=== PATIENT | male | born 1985 | race Hispanic/Latino ===

== ENCOUNTER 2024-08-29 21:06 | Emergency (ER) | payer SELFPAY ==
[~2024-08-29] VITALS: Ht 172.7 cm; Wt 95.3 kg
[2024-08-29 21:46] LABS: BASOPHILS # (AUTO) 0.04 K/uL (0.00-0.20); BASOPHILS % (AUTO) 0.5 % (0.0-5.0); EOSINOPHILS # (AUTO) 0.03 K/uL (0.00-0.70); EOSINOPHILS % (AUTO) 0.3 % (0.0-8.0); HEMATOCRIT 44.7 % (42-54); IMMATURE GRANULOCYTE ABSOLUTE 0.02 K/uL (0-1); LYMPHOCYTES # (AUTO) 1.7 K/uL (1.0-4.8); MEAN CORPUSCULAR HEMOGLOBIN 26.7 pg (27.0-33.0); MEAN CORPUSCULAR HGB CONC 32.7 g/dL (32.0-36.0); MEAN CORPUSCULAR VOLUME 81.7 fL (79-99); MONOCYTES # (AUTO) 0.5 K/uL (0.1-1.0); MONOCYTES % (AUTO) 5.8 % (3.0-13.0); NEUTROPHILS # (AUTO) 6.3 K/uL (1.8-7.7); NEUTROPHILS % (AUTO) 73.2 % (40.0-77.0); PLATELET COUNT (AUTO) 249 K/uL (130-400); RED BLOOD CELL COUNT(AUTO) 5.47 MIL/uL (4.50-6.20); RED CELL DISTRIBUTION WIDTH 14.9 % (11.0-15.5); WHITE BLOOD COUNT (AUTO) 8.7 K/uL (4.8-10.8)
[2024-08-29 21:58] LABS: CARBON DIOXIDE 31 mmol/L (21-32); CHLORIDE 103 mmol/L (101-111); GLOMERULAR FILTR. RATE CALC 98 mL/min (>90); GLUCOSE,RANDOM 97 mg/dL (70-105); POTASSIUM 3.6 mmol/L (3.5-5.1); SODIUM SERUM 142 mmol/L (136-145); UREA NITROGEN, BLOOD 13 mg/dL (7-18)
[2024-08-29 22:06] LABS: CREATINE KINASE, TOTAL 129 U/L (21-232)
[2024-08-29 22:11] LABS: B-TYPE NATRIURETIC PEPTIDE 10 pg/mL (0-100)
[2024-08-29] MEDS: ketOROlac 15MG/ML VIAL (15MG/ML) IM ONE (22:33)
[2024-08-29 22:34] LABS: APPEARANCE,URINE CLEAR (CLEAR); BILIRUBIN,URINE NEGATIVE (NEGATIVE); COLOR,URINE YELLOW (YELLOW); GLUCOSE, URINE (UA) NEGATIVE (NEGATIVE); KETONES,URINE NEGATIVE (NEGATIVE); LEUKOCYTE ESTERASE ,URINE NEGATIVE Leu/uL (NEGATIVE); NITRATE,URINE NEGATIVE (NEGATIVE); OCCULT BLOOD,URINE NEGATIVE (NEGATIVE); PH,URINE 6.5 (5.0-8.0); PROTEIN,URINE NEGATIVE (NEGATIVE); UROBILINOGEN,URINE 0.2 mg/dL (0.2-1.0)
[2024-08-29 22:36] LABS: MUCUS,URINE RARE LPF (None Seen); RBC,URINE 0-1 /HPF (0-1)
[2024-08-29 22:37] LABS: COVID19 (SARS ANTIGEN RAPID) PRESUMPTIVE NEGATIVE (NEGATIVE); INFLUENZA TYPE A Negative For Type A (NEGATIVE); INFLUENZA TYPE B Negative For Type B (NEGATIVE)
[2024-08-29 22:40] LABS: AMPHET/METH SCREEN,URINE NEGATIVE (NEGATIVE); BARBITURATE SCREEN, URINE NEGATIVE (NEGATIVE); BENZODIAZEPINES SCREEN,URINE NEGATIVE (NEGATIVE); CANNABINOID SCREEN,URINE POSITIVE (NEGATIVE); COCAINE SCREEN,URINE NEGATIVE (NEGATIVE); OPIATE SCREEN,URINE NEGATIVE (NEGATIVE); PHENCYCLIDINE SCREEN,URINE NEGATIVE (NEGATIVE)
--- NOTE | 2024-08-29 23:39 | HMCIMG ---
CT HEAD/BRAIN W/O CONTRAST HISTORY: Severe headaches COMPARISON: None TECHNIQUE: Multiple sequential axial images of the head were obtained from the base of the skull through vertex. Patient was not given contrast through intravenous route. FINDINGS: The ventricles and extraventricular CSF spaces are nondilated for patient's age. There is no midline shift, mass effect or herniation. No acute intracranial bleed is seen. Visualized portion of the paranasal sinuses are grossly within normal limits. IMPRESSION: 1. No acute intracranial bleed is seen. CT was performed with one or more following dose reduction techniques: automated exposure control, adjustment of the mA and kv according to patient's size, or use of a iterative reconstruction technique.
[2024-08-30] MEDS: 0.9%NACL 1000ML 1,000 ML IV ONE (00:22)
[2024-08-30 01:00] VITALS: BP 131/88; PULSE 67; RESP 18; TEMP 98.1; O2SAT 99
--- NOTE | 2024-08-30 01:03 | ERN ---
General Chief Complaint: Chest Pain Stated Complaint: DRY MOUTH,DRY HANDS, CHEST PAIN, LEG PAIN Time Seen by MD: 21:07 Time Seen by Midlevel: 21:07 Source: patient History of Present Illness Initial Comments 38-year-old male who presents to the emergency department due to chest pain onset four days. Patient reports dry mouth, sweaty hands, cough, dizziness, headache. Denies any fever, shortness of breath, abdominal pain or further associated symptoms. Denies significant past medical history. Allergies: Coded Allergies: No Known Allergies (Unverified Allergy, Unknown, 08/29/24) Past Medical History Past Medical History: No Pertinent History Past Surgical History: None ROS Dictation Constitutional: Negative for fever,chills, and weight loss Eyes: Negative for injury, pain,redness, and discharge ENT: Positive for dry mouth Negative for injury,pain or swelling Cardiovascular: Positive for chest pain Negative for palpitations, and edema Respiratory: Positive for cough Negative for shortness of breath, and wheezing Abdomen/GI: Negative for abdominal pain, nausea, vomiting, diarrhea, and constipation Back: Negative for injury and pain : Negative for painful urination, bleeding or discharge MS/Extremity: Negative for injury and deformity Skin: Positive for sweating hands Negative for rash, and discoloration Neuro: Positive for dizziness, headache Negative for weakness, numbness, tingling, and seizure Psych: Negative for suicide ideation, homicidal ideation, and hallucinations Physical Exam Physical Exam Dictation General: awake, alert, no acute distress Head/Face: Normocephalic, atraumatic Eyes: PERRL, EOMI, normal conjunctiva ENT: oral cavity clear, oral mucosa moist Neck: Supple, normal range of motion Cardiovascular: RRR, normal S1/S2 Respiratory: CTAB, no respiratory distress, no rales or wheezes Abdomen: Soft, non-tender, non-distended, no guarding or rebound. Skin: Warm, dry, normal turgor, no rash MS/Extremity: Pulses equal, no cyanosis, neurovascular intact, FROM Neuro: COAx4, GCS 15, strength 5/5, CN 2-12 intact, normal cerebellar exam, normal gait Psych: Normal behavior, mood, and affect normal Results Laboratory and Microbiology Lab and Micro Result Laboratory Tests Test 08/29/24 21:30 08/29/24 22:00 White Blood Count 8.7 K/uL (4.8-10.8) Red Blood Count 5.47 MIL/uL (4.50-6.20) Hemoglobin 14.6 g/dL (14.0-18.0) Hematocrit 44.7 % (42-54) Mean Corpuscular Volume 81.7 fL (79-99) Mean Corpuscular Hemoglobin 26.7 pg (27.0-33.0) L Mean Corpuscular Hemoglobin Concent 32.7 g/dL (32.0-36.0) Red Cell Distribution Width 14.9 % (11.0-15.5) Platelet Count 249 K/uL (130-400) Mean Platelet Volume 10.7 fL (7.5-10.5) H Immature Granulocyte % (Auto) 0.2 % (0-1) Neutrophils (%) (Auto) 73.2 % (40.0-77.0) Lymphocytes (%) (Auto) 20.0 % (21.0-51.0) L Monocytes (%) (Auto) 5.8 % (3.0-13.0) Eosinophils (%) (Auto) 0.3 % (0.0-8.0) Basophils (%) (Auto) 0.5 % (0.0-5.0) Neutrophils # (Auto) 6.3 K/uL (1.8-7.7) Lymphocytes # (Auto) 1.7 K/uL (1.0-4.8) Monocytes # (Auto) 0.5 K/uL (0.1-1.0) Eosinophils # (Auto) 0.03 K/uL (0.00-0.70) Basophils # (Auto) 0.04 K/uL (0.00-0.20) Absolute Immature Granulocyte (auto 0.02 K/uL (0-1) Nucleated Red Blood Cells 0.0 % (0.0-0.19) Sodium Level 142 mmol/L (136-145) Potassium Level 3.6 mmol/L (3.5-5.1) Chloride Level 103 mmol/L (101-111) Carbon Dioxide Level 31 mmol/L (21-32) Blood Urea Nitrogen 13 mg/dL (7-18) Creatinine 1.0 mg/dL (0.5-1.3) Glomerular Filtration Rate Calc 98 mL/min (>90) Random Glucose 97 mg/dL (70-105) Total Calcium 9.1 mg/dL (8.5-10.1) Total Creatine Kinase 129 U/L (21-232) Troponin I High Sensitivity < 4.0 ng/L (4-75) L B-Type Natriuretic Peptide 10 pg/mL (0-100) Urine Color YELLOW (YELLOW) Urine Appearance CLEAR (CLEAR) Urine pH 6.5 (5.0-8.0) Urine Specific [place] 1.021 (1.001-1.031) Urine Protein NEGATIVE mg/dL (NEGATIVE) Urine Glucose (UA) NEGATIVE mg/dL (NEGATIVE) Urine Ketones NEGATIVE mg/dL (NEGATIVE) Urine Occult Blood NEGATIVE (NEGATIVE) Urine Nitrate NEGATIVE (NEGATIVE) Urine Bilirubin NEGATIVE mg/dL (NEGATIVE) Urine Urobilinogen 0.2 mg/dL (0.2-1.0) Urine Leukocyte Esterase NEGATIVE Rob/uL Urine RBC 0-1 /HPF (0-1) Urine WBC None /HPF (0-1) Urine Bacteria None /HPF (None Seen) Urine Opiates Screen NEGATIVE (NEGATIVE) Urine Barbiturates Screen NEGATIVE (NEGATIVE) Urine Phencyclidine Screen NEGATIVE (NEGATIVE) Urine Amphetamines Screen NEGATIVE (NEGATIVE) Urine Benzodiazepines Screen NEGATIVE (NEGATIVE) Urine Cocaine Screen NEGATIVE (NEGATIVE) Urine Marijuana (THC) Screen POSITIVE (NEGATIVE) H Influenza Type A Antigen Negative For Type A Influenza Type B Antigen Negative For Type B SARS-CoV-2 Antigen (Rapid) PRESUMPTIVE NEGATIVE Labs Reviewed?: Yes EKG/XRAY/US/CT/MRI EKG Comment Date: 08/29/2024 Time: 2120 Rate: 85 EKG interpretation: Sinus rhythm, probable left atrial enlargement, no STEMI Reviewed by ED Attending CT Scan Comment REASON: severe headache ORDERING PHYSICIAN: JUANITA CANADA PROCEDURE: HEAD WO - CT HEAD/BRAIN W/O CONTRAST CT HEAD/BRAIN W/O CONTRAST HISTORY: Severe headaches COMPARISON: None TECHNIQUE: Multiple sequential axial images of the head were obtained from the base of the skull through vertex. Patient was not given contrast through intravenous route. FINDINGS: The ventricles and extraventricular CSF spaces are nondilated for patient's age. There is no midline shift, mass effect or herniation. No acute intracranial bleed is seen. Visualized portion of the paranasal sinuses are grossly within normal limits. IMPRESSION: 1. No acute intracranial bleed is seen. CT was performed with one or more following dose reduction techniques: automated exposure control, adjustment of the mA and kv according to patient's size, or use of a iterative reconstruction technique. DICTATED BY: AMRITA MERCER MD DATE: 08/29/242334 [facility] MDM: Differential diagnosis: Arrhythmia, electrolyte imbalance, AK, dehydration, tension headache Rationale: 38-year-old male who presents to the emergency department due to chest pain onset four days. Patient reports dry mouth, sweaty hands, cough, dizziness, headache. Denies any fever, shortness of breath, abdominal pain or further associated symptoms. Denies significant past medical history. Patient verbalized he has been under a lot of stress and traveling recently with lack of sleep as well. Per physical examination patient is in no acute distress, nonlabored breathing, neurologically intact. Labs obtained, CBC nonspecific with no elevated WBCs, chemistry within normal limits, negative troponin, UA negative for urinary tract infection, urine drug screen positive for marijuana, influenza and SARs negative. EKG within normal limits. was insistent and concern due to patient's severe headaches, head CT obtained with no acute abnormalities. Patient was administered ketorolac, and IV fluids. On re-examination patient verbalized chest pain had resolved, dizziness and headache had resolved as well. Patient's initial blood pressure was elevated 174/104 improved to 131/88. Patient was educated on findings and diagnosis. Advised to follow up with PCP. Return to the emergency department if any worsening symptoms. Patient verbalized understanding. Patient stable for discharge. There are no social concerns with this patient. I independently interpreted the test that were performed, results were reviewed by me and considered findings on radiology if ordered. Medical management and examination interpretation discussions were had by me with other qualified healthcare professionals as indicated for the patient's care. ED Course Orders Procedure Category Date Status Time Vital Signs Per CPOE 08/29/24 Transmitted Routine 21:15 B-Type Natriuretic LAB 08/29/24 Complete Peptide 21:15 Chest 1vw RAD 08/29/24 Taken 21:15 12 Lead Ekg Tracing- EKG 08/29/24 Logged Technical 21:15 Oxygen By Nc/Pulse Ox CPOE 08/29/24 Transmitted 21:15 Maintain Iv CPOE 08/29/24 Transmitted 21:15 Iv Insertion CPOE 08/29/24 Transmitted 21:15 Cardiac Monitoring CPOE 08/29/24 Transmitted 21:15 Pulse Oximetry With CPOE 08/29/24 Transmitted Vs And Prn 21:15 Cbc With Differential LAB 08/29/24 Complete 21:15 Activity: Br W/Brp CPOE 08/29/24 Transmitted With Assist 21:15 Basic Metabolic Panel LAB 08/29/24 Complete 21:15 Urinalysis LAB 08/29/24 Complete W/Microscopic 21:16 Covid19 (Sars Antigen LAB 08/29/24 Complete Rapid) 21:16 Influenza Type A & B, LAB 08/29/24 Complete Rapid 21:16 Cardiac Panel LAB 08/29/24 Complete 21:15 Drug Screen Urine LAB 08/29/24 Complete 21:16 Ketorolac PHA 08/29/24 Complete Tromethamine 15mg/Ml 22:30 Ct Head/Brain W/O CT 08/29/24 Resulted Contrast 22:53 0.9%Nacl 1000ml (Ns PHA 08/29/24 Complete 1000ml) 23:00 Current Medications Medications (Trade) Dose Ordered Sig/Norah Route PRN Reason Start Time Stop Time Status Last Admin Dose Admin Ketorolac Tromethamine (toRADol) 15 mg ONCE ONCE IM 08/29/24 22:30 08/29/24 22:31 DC 08/29/24 22:33 Sodium Chloride 1,000 ml @ 0 mls/hr ONCE ONCE IV 08/29/24 23:00 08/29/24 23:01 DC 08/30/24 00:22 Vital Signs Date Time Temp Pulse Resp B/P (MAP) Pulse Ox O2 Delivery O2 Flow Rate FiO2 08/30/24 01:00 98.1 67 18 131/88 99 Room Air* 0 08/29/24 22:12 98.2 83 20 150/93 99 Room Air* 0 08/29/24 21:11 97.7 82 20 174/104 99 Room Air DX & DISP Disposition: Discharge Departure Impression: Primary Impression: Chest pain with low risk for cardiac etiology Condition: Stable Additional Instructions: Discharge home. Rest. Follow up with primary care in 24 hours. Return to the ER for any acute changes or worsening symptoms. If any medications were prescribed take as directed. Okay to continue home medications unless otherwise discussed during your visit in the emergency room today. Patient was also advised to follow-up with primary care physician in 1 to 2 days for continued monitoring. Referrals: SELF,REFERRAL (PCP) I performed the substantive portion of the visit. I have reviewed and personally made and approve the management plan that is documented in the notes by myself or the ADRIAN. I acknowledge full responsibility for the patient's management plan. JUANITA CANADA August 30, 2024 01:03
--- NOTE | 2024-08-30 06:41 | EKG ---
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
--- NOTE | 2024-08-30 09:39 | HMCIMG ---
Exam Type: CHEST 1VW Clinical Information: CHEST PAIN Comparison: None Findings: The lungs are clear of infiltrates. The heart is normal in size. The bony and soft tissue structures of the chest are unremarkable. Impression: Clear lungs.
== END 2024-08-30 01:25 | disposition home or self-care (01) ==
LOC: EDH 21:06
DX: R07.89 Other chest pain (principal); Z20.822 Contact with and (suspected) exposure to COVID-19
CPT/HCPCS: 99285; 70450; 71045; 87426; 82550; 84484; 80048; 83880; 80305; 85025; 87804 ×2; 81001; 36415; 96372; 93005; 96360; J1885; J7030